=== PATIENT | male | born 1980 | race Two or more races ===

== ENCOUNTER → 2016-09-22 | Outpatient (CLI) | payer SELFPAY ==
[~2016-09-22] MED LIST: ONDANSETRON HCL 4 MG/2 ML VIAL IV PUSH ONE
== END ==
LOC: HEDF 20:42
DX: R51 Headache (principal); M54.5 Low back pain; S99.912A Unspecified injury of left ankle, initial encounter; W17.89XA Other fall from one level to another, initial encounter; Y93.H3 Activity, building and construction; Y92.29 Other specified public building as the place of occurrence of the external cause; Y99.0 Civilian activity done for income or pay
CPT/HCPCS: A0431-QM-SH; A0436-QM-SH; J2405